=== PATIENT | male | born 1955 | race Caucasian/White ===

== ENCOUNTER 2017-08-29 15:02 | Emergency (ER) | payer MEDICARE, MEDICAID ==
[2017-08-29] MEDS ORDERED: Albuterol 0.083% 2.5 MG/3 ML Neb Soln NEB ONE ×2 (17:27→18:21)
--- NOTE | 2017-08-29 17:27 | EDM.PDOC ---
<Bhumika Dominguez - Last Filed: 08/29/17 18:00> ED HPI GENERAL MEDICAL PROBLEM - General Chief Complaint: Respiratory Problem Stated Complaint: CHEST CONGESTION, COUGHING Time Seen by Provider: 08/29/17 17:27 Source of Information: Reports: Patient History Limitations: Reports: No Limitations - History of Present Illness INITIAL COMMENTS - FREE TEXT/NARRATIVE: pt arrived with increased sob. He has been coughing for the past 2 weeks. He does think he had a seizure during the nite. He could have had 2. He has been progressively more sob. He is coughing up some mucous. he doies have a history of copd. Onset: Gradual Duration: Day(s): Location: Reports: Chest Associated Symptoms: Reports: Cough, Fever/Chills, Shortness of Breath Generalized Pain Score (Numeric/FACES): 7 - Related Data Allergies Allergy/AdvReac Type Severity Reaction Status Date / Time No Known Allergies Allergy Verified 08/29/17 15:39 Home Meds: Home Meds Aspirin [Ecotrin] 81 mg PO QAM 02/22/14 [History] Omeprazole 20 mg PO BID 02/22/14 [History] Psyllium Seed/Aspartame [Metamucil Powder] 283 gm PO DAILY PRN 02/22/14 [History ] Sertraline HCl [Zoloft] 50 mg PO QAM 02/22/14 [History] Simvastatin 40 mg PO BEDTIME 02/22/14 [History] Tamsulosin [Flomax] 0.4 mg PO QPM 02/22/14 [History] lamoTRIgine [Lamotrigine] 200 mg PO BID 02/22/14 [History] Gabapentin 600 mg PO BID 06/10/14 [History] Triamterene/Hydrochlorothiazid [Triamterene-HCTZ 37.5-25 MG] 0.5 tab PO QAM 11/19 [History] Clotrimazole/Betamethasone Dip [Lotrisone Cream] 1 applic TOP BID 10/10/14 [ History] Nitroglycerin 0.4 mg SL Q5M PRN 10/10/14 [History] Triamcinolone Acetonide [Triamcinolone Acetonide 0.1% Oint] 1 applic TOP TID 10/23 [History] Albuterol/Ipratropium [Combivent] 1 puff INH Q6HR 06/19/15 [History] Docusate Sodium [Colace] 100 mg PO BID PRN 06/19/15 [History] Cyanocobalamin (Vitamin B-12) [Vitamin B-12] 2,000 mcg PO DAILY 05/28/16 [ History] Fluticasone/Salmeterol [Advair 250-50 Diskus] 1 puff IH BID 05/28/16 [History] Zolpidem [Ambien] 5 mg PO BEDTIME PRN 05/28/16 [History] Bimatoprost [LUMIGAN 0.01% Ophth Soln] 2.5 ml EYEBOTH DAILY 05/29/16 [History] Solifenacin [Vesicare] 5 mg PO BID 05/29/16 [History] Past Medical History HEENT History: Reports: Glaucoma, Impaired Vision Other HEENT History: wears glasses Cardiovascular History: Reports: High Cholesterol, [place] Other Cardiovascular History: fatigue. [place] in Sep 2010 Respiratory History: Reports: COPD, Pneumonia, Recurrent Gastrointestinal History: Reports: GERD Other Gastrointestinal History: colostomy on left side of abdomen Genitourinary History: Reports: Urinary Incontinence Other Genitourinary History: hematuria low kidney function Musculoskeletal History: Reports: Back Pain, Chronic, Osteoarthritis Other Musculoskeletal History: Effusion of lower leg, chronic right SA joint pain Neurological History: Reports: Brain Injury, Concussion, Headaches, Chronic, Head Trauma, Seizure Other Neuro History: Restless Legs Syndrome Psychiatric History: Reports: Anxiety, Depression Other Psychiatric History: schizoid personality disorder Endocrine/Metabolic History: Reports: Obesity/BMI 30+ Oncologic (Cancer) History: Reports: Colon Other Oncologic History: Rectal Dermatologic History: Reports: Psoriasis - Infectious Disease History Infectious Disease History: Reports: Chicken Pox - Past Surgical History HEENT Surgical History: Reports: Oral Surgery Cardiovascular Surgical History: Reports: Percutaneous Transluminal Angioplasty GI Surgical History: Reports: Colon, Colonoscopy, Colostomy, EGD, Hernia Repair/ Other Musculoskeletal Surgical History: Reports: Arthroscopic Knee, Knee Replacement Social & Family History - Tobacco Use Smoking Status *Q: Current Every Day Smoker Years of Tobacco use: 41 Packs/Tins Daily: 1 Used Tobacco, but Quit: No Second Hand Smoke Exposure: No - Caffeine Use Caffeine Use: Reports: Coffee - Alcohol Use Days Per Week of Alcohol Use: 0 - Recreational Drug Use Recreational Drug Use: No Drug Use in Last 12 Months: No ED ROS GENERAL - Review of Systems Review Of Systems: See Below Constitutional: Reports: Weakness HEENT: Reports: No Symptoms Respiratory: Reports: Shortness of Breath, Wheezing Cardiovascular: Reports: No Symptoms Endocrine: Reports: No Symptoms GI/Abdominal: Reports: No Symptoms : Reports: No Symptoms Musculoskeletal: Reports: No Symptoms Skin: Reports: No Symptoms ED EXAM, GENERAL - Physical Exam Exam: See Below Free Text/Narrative:: pt arrived with increasing sob and cough . he is very wheezy. Exam Limited By: No Limitations General Appearance: Alert, Anxious, Moderate Distress Ears: Normal TMs Nose: Normal Inspection Throat/Mouth: Normal Inspection Head: Atraumatic Neck: Normal Inspection Respiratory/Chest: Decreased Breath Sounds, Wheezing Cardiovascular: Regular Rate, Rhythm GI/Abdominal: Soft, Non-Tender (Male) Exam: Normal Inspection Rectal (Males) Exam: Deferred Back Exam: Normal Inspection Extremities: Normal Inspection Neurological: Alert, Oriented, Normal Cognition Course - Vital Signs Last Recorded V/S: Last Vital Signs Temp 98.1 F 08/29/17 18:00 Pulse 80 08/29/17 18:00 Resp 16 08/29/17 18:00 BP 115/81 08/29/17 18:00 Pulse Ox 94 L 08/29/17 18:00 - Orders/Labs/Meds Orders: Active Orders 24 hr Category Date Time Status RT Aerosol Therapy [RC] ASDIRECTED Care 08/29/17 17:27 Active RT Aerosol Therapy [RC] ASDIRECTED Care 08/29/17 18:21 Active Chest 2V [CR] Stat Exams 08/29/17 17:26 Taken Labs: Laboratory Tests 08/29/17 08/29/17 08/29/17 Range/Units 17:25 17:25 17:36 WBC 6.6 (4.5-11.0) K/uL RBC 5.03 (4.30-5.90) M/uL Hgb 15.3 H (12.0-15.0) g/dL Hct 45.2 (40.0-54.0) % MCV 90 (80-98) fL MCH 30 (27-31) pg MCHC 34 (32-36) % Plt Count 227 (150-400) K/uL Neut % (Auto) 63 (36-66) % Lymph % (Auto) 21 L (24-44) % Harding % (Auto) 14 H (2-6) % Eos % (Auto) 2 (2-4) % Baso % (Auto) 0 (0-1) % Puncture Site ABG pH (7.350-7.450) ABG pCO2 (35.0-42.0) mmHg ABG pO2 (75.0-100.0) mmHg ABG HCO3 (22.0-26.0) mmol/L ABG Total CO2 (23.0-27.0) mmol/L ABG O2 Saturation (95.0-98.0) % ABG O2 Content (15.0-23.0) %vol ABG Base Excess mm/L ABG Hemoglobin (13.5-18.0) g/dL ABG Oxyhemoglobin % ABG Carboxyhemoglobin (0.0-1.6) % ABG Methemoglobin % Lance Test O2 Delivery Device Sodium 132 L (140-148) mmol/L Potassium 4.2 (3.6-5.2) mmol/L Chloride 95 L (100-108) mmol/L Carbon Dioxide 30 (21-32) mmol/L Anion Gap 11.2 (5.0-14.0) mmol/L BUN 9 D (7-18) mg/dL Creatinine 1.1 (0.8-1.3) mg/dL Est Cr Clr Drug Dosing 69.09 mL/min Estimated GFR (MDRD) > 60 (>60) Glucose 94 (74-106) mg/dL Calcium 9.0 (8.5-10.1) mg/dL Total Bilirubin 0.6 (0.2-1.0) mg/dL AST 21 (15-37) U/L ALT 25 (12-78) U/L Alkaline Phosphatase 87 (46-116) U/L Total Protein 7.7 (6.4-8.2) g/dL Albumin 3.7 (3.4-5.0) g/dL Globulin 4.0 H (2.3-3.5) g/dL Albumin/Globulin Ratio 0.9 L (1.2-2.2) Urine Color Yellow Urine Appearance Clear Urine pH 6.0 (4.5-8.0) Ur Specific Be[place]ah 1.015 (1.008-1.030) Urine Protein Negative (NEGATIVE) mg/dL Urine Glucose (UA) Normal (NEGATIVE) mg/dL Urine Ketones Negative (NEGATIVE) mg/dL Urine Occult Blood Negative (NEGATIVE) Urine Nitrite Negative (NEGAITVE) Urine Bilirubin Negative (NEGATIVE) Urine Urobilinogen Normal (NORMAL) mg/dL Ur Leukocyte Esterase Negative (NEGATIVE) Urine RBC 0-5 (0-5) Urine WBC Not seen (0-5) Ur Epithelial Cells Rare Amorphous Sediment Not seen Urine Bacteria Rare Urine Mucus Not seen 08/29/17 Range/Units 18:09 WBC (4.5-11.0) K/uL RBC (4.30-5.90) M/uL Hgb (12.0-15.0) g/dL Hct (40.0-54.0) % MCV (80-98) fL MCH (27-31) pg MCHC (32-36) % Plt Count (150-400) K/uL Neut % (Auto) (36-66) % Lymph % (Auto) (24-44) % Harding % (Auto) (2-6) % Eos % (Auto) (2-4) % Baso % (Auto) (0-1) % Puncture Site Rt.radial ABG pH 7.403 (7.350-7.450) ABG pCO2 39.4 (35.0-42.0) mmHg ABG pO2 66.4 L (75.0-100.0) mmHg ABG HCO3 24.1 (22.0-26.0) mmol/L ABG Total CO2 21.1 L (23.0-27.0) mmol/L ABG O2 Saturation 92.9 L (95.0-98.0) % ABG O2 Content 18.0 (15.0-23.0) %vol ABG Base Excess 0 mm/L ABG Hemoglobin 14.3 (13.5-18.0) g/dL ABG Oxyhemoglobin 89.6 % ABG Carboxyhemoglobin 2.9 H (0.0-1.6) % ABG Methemoglobin 0.7 % Lance Test Passed O2 Delivery Device Room air Sodium (140-148) mmol/L Potassium (3.6-5.2) mmol/L Chloride (100-108) mmol/L Carbon Dioxide (21-32) mmol/L Anion Gap (5.0-14.0) mmol/L BUN (7-18) mg/dL Creatinine (0.8-1.3) mg/dL Est Cr Clr Drug Dosing mL/min Estimated GFR (MDRD) (>60) Glucose (74-106) mg/dL Calcium (8.5-10.1) mg/dL Total Bilirubin (0.2-1.0) mg/dL AST (15-37) U/L ALT (12-78) U/L Alkaline Phosphatase (46-116) U/L Total Protein (6.4-8.2) g/dL Albumin (3.4-5.0) g/dL Globulin (2.3-3.5) g/dL Albumin/Globulin Ratio (1.2-2.2) Urine Color Urine Appearance Urine pH (4.5-8.0) Ur Specific Beulah (1.008-1.030) Urine Protein (NEGATIVE) mg/dL Urine Glucose (UA) (NEGATIVE) mg/dL Urine Ketones (NEGATIVE) mg/dL Urine Occult Blood (NEGATIVE) Urine Nitrite (NEGAITVE) Urine Bilirubin (NEGATIVE) Urine Urobilinogen (NORMAL) mg/dL Ur Leukocyte Esterase (NEGATIVE) Urine RBC (0-5) Urine WBC (0-5) Ur Epithelial Cells Amorphous Sediment Urine Bacteria Urine Mucus Meds: Medications Discontinued Medications Generic Name Dose Route Start Last Admin Trade Name Melisa PRN Reason Stop Dose Admin Albuterol 2.5 mg 08/29/17 17:27 08/29/17 17:35 Proventil Neb Soln NEB 08/29/17 17:28 2.5 mg ONETIME ONE Administration Albuterol 2.5 mg 08/29/17 18:21 08/29/17 18:32 Proventil Neb Soln NEB 08/29/17 18:22 2.5 mg ONETIME ONE Administration Sodium Chloride 1,000 mls @ 999 mls/hr 08/29/17 17:30 08/29/17 17:58 Normal Saline IV 999 mls/hr ASDIRECTED MARIELOS Administration Methylprednisolone Sodium Succinate 125 mg 08/29/17 17:28 08/29/17 17:59 Solu-Medrol IVPUSH 08/29/17 17:29 125 mg ONETIME ONE Administration Departure - Departure Disposition: Home, Self-Care 01 Clinical Impression: COPD with acute exacerbation - Discharge Information Instructions: Chronic Obstructive Pulmonary Disease Exacerbation, [id number] Referrals: Dominic Almodovar MD [Primary Care Provider] - Forms: ED Department Discharge Care Plan Goals: Take 6 pills of prednisone with your first meal of the day for the next 5 days starting tomorrow morning. Takes Zithromax as prescribed starting tonight. Continue with your other educations as usual. Return if worsening such as difficulty breathing, fever, or pain. <Tony Acevedo - Last Filed: 08/29/17 21:25> Course - Re-Assessments/Exams Free Text/Narrative Re-Assessment/Exam: 08/29/17 18:52 62-year-old male with a COPD exacerbation who was seen and treated by Dr. Dominguez. Care was turned over pending response to treatment to IV Solu-Medrol and DuoNeb's. He did improve quite significantly after the nebulizers. He is afebrile, his white count is normal, ABGs are reassuring and his chest x-ray does show small infiltrates in the left lower lobe. He'll be discharged on 60 mg of prednisone daily for the next 5 days and can return anytime if worsening such as fever or increased shortness of breath. He'll also be placed on a five- day course of Zithromax. Departure - Departure Time of Disposition: 19:17 Condition: Fair
[2017-08-29] MEDS ORDERED: methylPREDNISolone Sodium Succinate 125 MG/2 ML SDV IVPUSH ONE (17:28)
[2017-08-29] MEDS ORDERED: Sodium Chloride 0.9% 1,000 ML IV SCH (17:30)
[2017-08-29 19:16] VITALS: BP 115/81
--- NOTE | 2017-09-02 09:23 | CR ---
Heart size within normal limits. Right epicardial fat-pad. Slight density at the lingula may indicate atelectasis. Developing infiltrate not excluded. Recommend radiographic follow-up.
== END 2017-08-29 19:17 | disposition home or self-care (01) ==
LOC: JP.ED 15:02
DX: J44.1 Chronic obstructive pulmonary disease with (acute) exacerbation (principal); F17.210 Nicotine dependence, cigarettes, uncomplicated; E66.9 Obesity, unspecified; E78.00 Pure hypercholesterolemia, unspecified; I25.2 Old myocardial infarction; Z79.899 Other long term (current) drug therapy; Z79.82 Long term (current) use of aspirin
CPT/HCPCS: 36415; 36600; 71020; 80053; 81001; 82803; 85025; 94640; 96361; 96374; 99285; J2930; J7040; 99283

== ENCOUNTER 2019-06-07 06:24 | Day surgery (SDC) | payer MEDICARE, MEDICAID ==
[2019-06-07] MEDS ORDERED: Lactated Ringers 1,000 ML IV SCH (07:15)
[2019-06-07] MEDS ORDERED: Midazolam 1 MG/ML 2 ML SDV ONE (07:48)
[2019-06-07] MEDS ORDERED: Propofol 200 MG/20 ML SDV ONE ×2 (07:48→08:11)
[2019-06-07] MEDS ORDERED: fentaNYL 100 MCG/2 ML SDV ONE (07:48)
[2019-06-07 09:52] VITALS: BP 119/74; PULSE 69
--- NOTE | 2019-06-08 08:43 | OR ---
DATE OF PROCEDURE: 06/07/2019 SURGEON: Wei Hubbard MD PREOPERATIVE DIAGNOSIS: History of rectal cancer, blood in stool. POSTOPERATIVE DIAGNOSIS: Four hepatic flexure polyps adjacent to each other and an another polyp 25 cm from the colostomy. PROCEDURE PERFORMED: Colonoscopy to the cecum with biopsy resection of four polyps at the hepatic flexure, sent as one specimen and polyp 25 cm from the colostomy sent separately to the lab. ANESTHESIA: IV anesthesia with monitored anesthesia care. INDICATION: This 64-year-old white male has history of a rectal cancer, treated many years ago ultimately with an abdominoperineal resection. He is here for a followup colonoscopy. He says the last colonoscopic exam was done 3 years ago. He has noted some blood in his stool. He also has a history of polyps. I counseled him for a colonoscopy with possible biopsy and/or polypectomy, including risks and alternatives, and he gave his informed consent to proceed. DESCRIPTION OF PROCEDURE: The patient left supine on the cart. IV anesthesia was administered by the Anesthesia Service. Time-out was held. The colostomy was digitally palpated and appeared unremarkable. The flexible video Olympus colonoscope was introduced through the colostomy out all the way to the cecum. En route, at the hepatic flexure, we saw four polyps adjacent to each other, which were removed with the biopsy forceps and sent to the laboratory as one specimen. The prep was fairly poor. We did not get to see the cecum due to all the solid material present in it. The scope was then slowly withdrawn examining the mucosa throughout. No additional mucosal abnormalities were noted until we reached 25 cm from the anal verge. Here, another small polyp was seen, which was removed with the biopsy forceps and sent to the laboratory. The scope was withdrawn with no other lesions noted and it was removed. He tolerated the procedure well. Wei Hubbard MD /[id number]
== END 2019-06-07 09:55 | disposition home or self-care (01) ==
LOC: JP.SDS 06:24
PROVIDERS: ATTEND Surgery
DX: D12.3 Benign neoplasm of transverse colon (principal); D12.5 Benign neoplasm of sigmoid colon; I25.2 Old myocardial infarction; E66.9 Obesity, unspecified; J44.9 Chronic obstructive pulmonary disease, unspecified; F17.210 Nicotine dependence, cigarettes, uncomplicated; F60.1 Schizoid personality disorder; G47.33 Obstructive sleep apnea (adult) (pediatric); Z90.49 Acquired absence of other specified parts of digestive tract; Z85.048 Personal history of other malignant neoplasm of rectum, rectosigmoid junction, and anus; Z86.010 Personal history of colon polyps; Z68.37 Body mass index [BMI] 37.0-37.9, adult
CPT/HCPCS: 44389; J2250; J2704; J3010; J7120; 88305

== ENCOUNTER 2022-03-05 20:21 | Emergency (ER) | payer MEDICARE, MEDICAID ==
[2022-03-05 21:22] VITALS: BP 130/82; PULSE 92
[2022-03-05 22:17] LABS: ESTIMATED GFR 68 mL/min (>60)
[2022-03-05] MEDS ORDERED: cefTRIAXone 1 GM Vial IM ONE (23:28)
[2022-03-05] MEDS ORDERED: Lidocaine 1% 5 ML VIAL INJECT ONE (23:41)
== END 2022-03-06 00:11 | disposition home or self-care (01) ==
LOC: JP.ED 20:21
DX: N30.01 Acute cystitis with hematuria (principal); K94.09 Other complications of colostomy; R60.0 Localized edema; E87.1 Hypo-osmolality and hyponatremia; F17.210 Nicotine dependence, cigarettes, uncomplicated; K43.5 Parastomal hernia without obstruction or gangrene; E78.00 Pure hypercholesterolemia, unspecified; I25.2 Old myocardial infarction; J44.9 Chronic obstructive pulmonary disease, unspecified; K21.9 Gastro-esophageal reflux disease without esophagitis; M19.90 Unspecified osteoarthritis, unspecified site; Z79.82 Long term (current) use of aspirin; Z79.899 Other long term (current) drug therapy
CPT/HCPCS: 36415; 80053; 81001; 85025; 85610; 85730; 87086; 87088; 87186; 96372; 99283; 99284; J0696

== ENCOUNTER 2022-04-27 15:13 | Emergency (ER) | payer MEDICARE, MEDICAID ==
[2022-04-27] MEDS ORDERED: Norepinephrine 8 MG in Dextrose 5% in Water 250 ML IV SCH ×2 (15:30)
[2022-04-27] MEDS ORDERED: Sodium Chloride 0.9% 10 ML Syringe FLUSH PRN (15:31)
[2022-04-27] MEDS ORDERED: Sodium Chloride 0.9% 1,000 ML IV SCH ×2 (15:45→20:15)
[2022-04-27 16:24] LABS: ESTIMATED GFR 8 mL/min (>60)
[2022-04-27] MEDS: Sodium Chloride 0.9% 1,000 ML IV SCH ×2 (17:23→22:01)
[2022-04-27] MEDS ORDERED: Piperacillin/Tazobactam 3.375 GM in Sodium Chloride 0.9% 50 ML IV SCH (18:54)
[2022-04-27 22:22] VITALS: BP 118/80; PULSE 77
== END 2022-04-27 23:02 ==
LOC: JP.ED 15:13
DX: A41.9 Sepsis, unspecified organism (principal); R65.20 Severe sepsis without septic shock; N19 Unspecified kidney failure; U07.1 COVID-19; K56.609 Unspecified intestinal obstruction, unspecified as to partial versus complete obstruction; I25.2 Old myocardial infarction; E78.00 Pure hypercholesterolemia, unspecified; K21.9 Gastro-esophageal reflux disease without esophagitis; J44.9 Chronic obstructive pulmonary disease, unspecified; E66.9 Obesity, unspecified; Z68.41 Body mass index [BMI] 40.0-44.9, adult; Z79.82 Long term (current) use of aspirin; Z79.899 Other long term (current) drug therapy
CPT/HCPCS: 36415; 43752; 71045; 71250; 74176; 80053; 81001; 83605; 84145; 85025; 86140; 87040; 93005; 96365; 96366; 96368; 99285; J2543; J7030; J7060; U0002